=== PATIENT | female | born 1945 | race Caucasian/White ===

== ENCOUNTER 2016-05-14 13:20 | Day surgery (SDC) | payer MEDICARE ==
[2016-05-14 13:53] VITALS: BP 140/57; PULSE 78; RESP 16; TEMP 98.7; O2SAT 100
[2016-05-14] MEDS ORDERED: LIDOCAINE HCL 1% PF 30 ML VIAL ONE (14:44)
[2016-05-14] MEDS ORDERED: SODIUM BICARBONATE 8.4% INJ 50 ML ONE (14:44)
[2016-05-14 14:45] VITALS: BP 144/70; PULSE 65; RESP 14; TEMP 98; O2SAT 100
[2016-05-14 15:00] VITALS: BP 144/70; PULSE 64; RESP 16; O2SAT 98
--- NOTE | 2016-05-14 15:21 | RADRPT ---
EXAM DATE/TIME: 05/14/2016 13:53 [place] COMPARISON: No previous studies available for comparison. INDICATIONS : Left chest wall mass. MEDICAL HISTORY : Left breast cancer. SURGICAL HISTORY : Left breast mastectomy. ENCOUNTER: Initial ACUITY: 1 day PAIN SCORE: 2/10 LOCATION: Left chest ORGAN: Left chest wall SPECIMENS: Two core specimen(s) submitted for pathologic evaluation. DEVICE: 18 gauge Bio Pince needle Post procedure scanning reveals no hematoma or other complication. The possibility does exist that the tissue obtained will be non-diagnostic. If the sample is non-yelena gnostic a repeat biopsy or surgical biopsy may need to be performed. TECHNIQUE: 1. Ultrasound guidance for needle biopsy. 2. Needle biopsy. The risks, benefits, and alternatives to ultrasound guided needle biopsy were explained to the patien t in detail including the risk of bleeding and infection. Written and verbal informed consent was ob tained. With the patient on the ultrasound table, images were obtained. Overlying skin was prepped and drape d in the usual sterile fashion and Lidocaine was utilized as a local anesthetic. Under direct ultrasound visualization 2 cores were obtained with an 18 gauge cutting needle.. Single slide was submitted. The patient tolerated the procedure well and left the ultrasound suite in stable condition. CONCLUSION: Uncomplicated ultrasound guided needle biopsy of a chest wall mass on the left, probably adenopathy f rom recurrent breast cancer. Rocco Ramsay MD FACR on May 14, 2016 at 15:16 Board Certified Radiologist. This report was verified electronically.
== END 2016-05-14 15:15 | disposition home or self-care (01) ==
LOC: EDBD 13:20 → HRAD 13:20 → HRIP 13:30 → HRAD 15:15
PROVIDERS: ATTEND Family Medicine
DX: R22.2 Localized swelling, mass and lump, trunk (principal); Z85.3 Personal history of malignant neoplasm of breast
CPT/HCPCS: 20206; 76942; 88305; 88307; 88333; 88341; 88342